=== PATIENT | male | born 1950 | race Caucasian/White ===

== ENCOUNTER 2018-10-13 08:35 | Inpatient (IN) | payer BC, OTHER ==
[~2018-10-13] VITALS: Ht 188 cm; Wt 106.9 kg
[2018-10-13 10:07] LABS: Basophils # (auto) 0.1 uL; Basophils % (auto) 0.7 % (0.0-2.0); Eosinophils # (auto) 0.1 uL; Eosinophils % (auto) 1.1 % (0.0-7.0); Hematocrit 44.7 % (41.0-53.0); Hemoglobin 15.3 g/dL (13.5-17.5); Lymphocytes # (auto) 0.7 uL; Lymphocytes % (auto) 7.4 % (10.0-50.0); Mean Corpuscular Hemoglobin 30.1 pg (28.0-32.0); Mean Corpuscular Hgb Conc. 34.3 g/dL (32.0-36.0); Mean Corpuscular Volume 87.7 fL (80.0-100.0); Monocytes # (auto) 1.3 uL; Monocytes % (auto) 13.5 % (0.0-12.0); Neutrophils # (auto) 7.6 uL; Neutrophils % (auto) 77.3 % (37.0-80.0); Platelet Count (auto) 274 10^3/uL (140-450); Red Cell Distribution Width 13.5 % (11.8-14.3); White Blood Cell 9.8 10^3/uL (4.4-10.8)
[2018-10-13 10:25] LABS: Albumin 3.7 g/dL (3.4-5.0); Amylase 30 U/L (25-115); Anion Gap 8 (5-15); Blood Urea Nitrogen 16 mg/dL (7-18); Calcium 9.2 mg/dL (8.5-10.1); Carbon Dioxide 27 mmol/L (21-32); Chloride 96 mmol/L (98-107); Glucose 121 mg/dL (74-106); Lipase 92 U/L (73-393); Potassium 4.6 mmol/L (3.5-5.1); Sodium 131 mmol/L (136-145)
[2018-10-13 10:31] LABS: Alanine Aminotransferase 24 U/L (16-61); Alkaline Phosphatase 90 U/L (45-117); Aspartate Aminotransferase 14 U/L (15-37); Bilirubin, Total 0.9 mg/dL (0.2-1.0); GFR African American 62 mL/min; GFR Non-African American 51 mL/min; Total Protein 7.5 g/dL (6.4-8.2)
[2018-10-13 14:18] LABS: Urine Bacteria NONE SEEN /hpf (None Seen); Urine Blood Negative /uL (Negative); Urine WBC <1 /hpf (0 - 3)
[2018-10-13] MEDS ORDERED: metroNIDAZOLE 500MG/100ML 100 ML IV ONE (15:00)
[2018-10-13] MEDS ORDERED: GASTROGRAFIN 120 ML SOL ONE (15:01)
[2018-10-13] MEDS ORDERED: PANTOPRAZOLE 40 MG/10 ML VIAL INJ IV ONE (15:15)
[2018-10-13] MEDS ORDERED: cefTRIAXone 1GM/50ML D5W 50 ML IV ONE (15:15)
[2018-10-13] MEDS ORDERED: LACTULOSE 20Gm/30ML SOLN PO PRN (15:15)
[2018-10-13] MEDS ORDERED: PROMETHAZINE HCL 25 MG/ML 1ML IV PRN (15:15)
[2018-10-13] MEDS ORDERED: MORPHINE SULFATE 4 MG/ML SYR/VIAL IV PRN ×2 (15:15)
--- NOTE | 2018-10-13 16:20 | NUR ---
Med-Surg admit from ER JONNY MANN admitted to Med-Surg unit after SBAR received. Patient reported mild abdominal pain. No nausea at this time though he said he has been having nausea and vomiting these past few days. Patient oriented to LANDON Perez RN, unit, room, bed, and unit policies regarding patient care and visiting hours. Patient is on room air, weighed by bed scale and encouraged to call if they need something. All questions and concerns addressed, patient verbalized understanding.
[2018-10-13] MEDS ORDERED: ESOMEPRAZOLE 40 MG/5ml VIAL INJ IV SCH (16:30)
[2018-10-13] MEDS ORDERED: SERT-275 PO (16:50)
[2018-10-13] MEDS ORDERED: BENA5TAB5 PO (16:50)
[2018-10-13] MEDS ORDERED: LEVO50TA7 PO (16:50)
[2018-10-13] MEDS ORDERED: DIGO0.1262 PO (16:50)
[2018-10-13] MEDS: SODIUM CHLORIDE 0.9% 1,000 ML IV SCH (16:59)
[2018-10-13 17:21] VITALS: BP 117/72
--- NOTE | 2018-10-13 19:02 | NUR ---
Page Dr. Yee to report on Small bowel series result.
--- NOTE | 2018-10-13 19:35 | NUR ---
Opening Shift Note Assumed care of patient, awake and alert x4. Patient denies pain or nausea at this time. Instructed on plan of care and to call for assistance. Bed is locked in lowest position, side rails x 2 are up, and call light is within reach.
--- NOTE | 2018-10-13 20:00 | NUR ---
PAGED DR. YEE RE: NGT CLARIFICATION/REPORT ON SMALL BOWEL X-RAY Paged Dr. Yee regarding NGT order clarification and to report the small bowel x-ray results. Awaiting call back.
[2018-10-13] MEDS: metroNIDAZOLE 500MG/100ML 100 ML IV SCH (21:08)
[2018-10-13 21:43] VITALS: BP 110/56
--- NOTE | 2018-10-14 00:08 | NUR ---
PAGED HOSPITALIST RE: CLARIFICATION FOR NGT PLACEMENT ORDER Hospitalist paged regarding clarification for NGT placement order. Awaiting call back.
--- NOTE | 2018-10-14 00:11 | NUR ---
SPOKE WITH ITZEL HILL RE: NGT ORDER Spoke with ITZEL Hill regarding NGT order. Informed ITZEL Hill that patient had a small bowel x-ray done and results showed "there is no evidence for small bowel obstruction." ITZEL Hill was also made aware that patient denies nausea or vomiting at this time and his abdomen is only tender when he moves. Per ITZEL Hill it is okay to discontinue order for NG tube placement as it is not needed at this time.
--- NOTE | 2018-10-14 01:06 | NUR ---
CDIFF STOOL SAMPLE COLLECTED AND SENT TO LAB CDIFF stool sample collected and sent to lab.
[2018-10-14] MEDS: SODIUM CHLORIDE 0.9% 1,000 ML IV SCH ×3 (01:07→21:36)
[2018-10-14 05:11] VITALS: BP 112/67
[2018-10-14] MEDS: metroNIDAZOLE 500MG/100ML 100 ML IV SCH ×3 (05:25→21:36)
--- NOTE | 2018-10-14 07:01 | NUR ---
CLOSING SHIFT NOTE Patient is laying in bed with symmetrical chest rise and fall. Patient denies pain at this time. No S/S of distress noted. Bed is locked in lowest position, side rails x 2 are up, and call light is within reach. Endorsed patient care to Vianey DEJESUS.
[2018-10-14 07:02] LABS: Potassium 3.9 mmol/L (3.5-5.1)
[2018-10-14 07:06] LABS: Albumin 3.1 g/dL (3.4-5.0); BUN/Creatinine Ratio 13.5; Calcium 8.3 mg/dL (8.5-10.1)
[2018-10-14 07:08] LABS: Bilirubin, Total 0.6 mg/dL (0.2-1.0); Total Protein 6.3 g/dL (6.4-8.2)
--- NOTE | 2018-10-14 07:20 | NUR ---
Opening Shift Note Assumed care of patient, awake and alert. No S/S of distress/SOB. Patient reported mild abdominal pain and liquid stool. Instructed on POC-continue IV hydration, IV antibiotics, keep NPO for now but will ask MD to advance diet as tolerated. Patient informed to call for assist PRN, will continue to monitor for changes Q1hr and PRN.
[2018-10-14 08:30] VITALS: BP 111/63
[2018-10-14] MEDS: cefTRIAXone 1GM/50ML D5W 50 ML IV SCH (09:00)
[2018-10-14] MEDS ORDERED: PANTOPRAZOLE 40 MG/10 ML VIAL INJ IV SCH (10:00)
[2018-10-14] MEDS: ESOMEPRAZOLE 40 MG/5ml VIAL INJ IV SCH (10:33)
[2018-10-14 12:30] VITALS: BP 118/73
--- NOTE | 2018-10-14 17:00 | NUR ---
Message from Dr. Leblanc Per Dr. Leblanc, patient will need to follow up with GI out-patient in 2-4 weeks for colonoscopy.
[2018-10-14 17:28] VITALS: BP 126/59
--- NOTE | 2018-10-14 19:00 | NUR ---
Closing Note Patient is resting in bed, no complaints of pain. Family at bedside, call light within reach and bed in lowest position. Care endorsed to night RN.
--- NOTE | 2018-10-14 19:30 | NUR ---
Opening Shift Note Assumed care of patient, awake and alert. No S/S of distress/SOB or pain. Insructed on POC and to callfor assist PRN, will continue to monitor for changes Q1hr and PRN. Fall and safety precautions in place. Call light within reach.
[2018-10-14 22:00] VITALS: BP 145/87
[2018-10-15 05:00] VITALS: BP 141/67
[2018-10-15] MEDS: metroNIDAZOLE 500MG/100ML 100 ML IV SCH (05:41)
[2018-10-15 07:19] VITALS: BP 132/75
[2018-10-15 07:26] LABS: Albumin 3.1 g/dL (3.4-5.0); BUN/Creatinine Ratio 8.9; Calcium 8.2 mg/dL (8.5-10.1); Potassium 3.7 mmol/L (3.5-5.1)
[2018-10-15 07:29] LABS: Bilirubin, Total 0.4 mg/dL (0.2-1.0)
--- NOTE | 2018-10-15 07:44 | NUR ---
Assumed care of pt, awake and alert, no s&s of distress/sob or pain noted, instructed on poc and to call for assist prn, will continue to monitor for changes q1h and prn.
[2018-10-15] MEDS: cefTRIAXone 1GM/50ML D5W 50 ML IV SCH (09:32)
[2018-10-15] MEDS: ESOMEPRAZOLE 40 MG/5ml VIAL INJ IV SCH (09:37)
[2018-10-15] MEDS: SODIUM CHLORIDE 0.9% 1,000 ML IV SCH ×3 (10:36→22:21)
--- NOTE | 2018-10-15 12:14 | NUR ---
Pt awake and alert , no s&s of distress/sob or pain noted, will continue to monitor for changes q1h and prn.
[2018-10-15] MEDS ORDERED: DIGOXIN 0.125 MG TAB PO ONE (12:15)
[2018-10-15] MEDS ORDERED: LEVOTHYROXINE SODIUM 50 MCG TAB PO ONE (12:15)
[2018-10-15] MEDS ORDERED: BENAZEPRIL HCL 10 MG TAB PO ONE (12:30)
[2018-10-15] MEDS ORDERED: SERTRALINE HCL 50 MG TAB PO ONE (12:30)
[2018-10-15] MEDS ORDERED: PANTOPRAZOLE 40 MG TAB PO ONE (12:30)
[2018-10-15 14:09] VITALS: BP 126/67
--- NOTE | 2018-10-15 15:40 | NUR ---
Pt sleeping , no s&s of distress/sob or pain noted, will continue to monitor for changes q1h and prn.
[2018-10-15 17:39] VITALS: BP 123/66
--- NOTE | 2018-10-15 20:00 | NUR ---
Opening shift note: Patient resting in bed. Reports no pain or discomfort since diet was advanced. Bed is locked in lowest position with side rails up x2. He was updated on his plan of care and understands to use call light if assistance is needed. Will continue to monitor.
[2018-10-15 22:00] VITALS: BP 104/58
[2018-10-16 05:00] VITALS: BP 117/63
[2018-10-16] MEDS ORDERED: LEVOTHYROXINE SODIUM 50 MCG TAB PO SCH (07:00)
[2018-10-16 07:16] LABS: Basophils # (auto) 0.1 uL; Basophils % (auto) 0.8 % (0.0-2.0); Eosinophils # (auto) 0.2 uL; Eosinophils % (auto) 3.1 % (0.0-7.0); Hematocrit 40.6 % (41.0-53.0); Hemoglobin 13.7 g/dL (13.5-17.5); Lymphocytes # (auto) 1.6 uL; Lymphocytes % (auto) 23.4 % (10.0-50.0); Mean Corpuscular Hemoglobin 29.8 pg (28.0-32.0); Mean Corpuscular Hgb Conc. 33.7 g/dL (32.0-36.0); Mean Corpuscular Volume 88.3 fL (80.0-100.0); Monocytes # (auto) 0.7 uL; Monocytes % (auto) 10.1 % (0.0-12.0); Neutrophils # (auto) 4.4 uL; Neutrophils % (auto) 62.6 % (37.0-80.0); Platelet Count (auto) 245 10^3/uL (140-450); Red Cell Distribution Width 13.5 % (11.8-14.3)
[2018-10-16 07:38] LABS: BUN/Creatinine Ratio 8.3; Calcium 8.2 mg/dL (8.5-10.1)
[2018-10-16 08:00] VITALS: BP 135/69
[2018-10-16 09:00] VITALS: BP 135/69
[2018-10-16] MEDS ORDERED: BENAZEPRIL HCL 10 MG TAB PO SCH (10:00)
[2018-10-16] MEDS ORDERED: DIGOXIN 0.125 MG TAB PO SCH (10:00)
[2018-10-16] MEDS ORDERED: PANTOPRAZOLE 40 MG TAB PO SCH (10:00)
[2018-10-16] MEDS ORDERED: SERTRALINE HCL 50 MG TAB PO SCH (10:00)
[2018-10-16 12:23] VITALS: BP 135/69
--- NOTE | 2018-10-16 13:00 | NUR ---
PATIENT DISCHARGED HOME. IV ACCESS DISCONTINUED. ALL DISCHARGE PAPERWORK SIGNED AND ALL DISCHARGE INSTRUCTIONS GIVEN
--- NOTE | 2018-10-16 16:10 | NUR ---
IM pt d/c before I could get IM signed
== END 2018-10-16 13:00 | disposition home or self-care (01) | DRG 389 ==
LOC: ER 08:38 → EAST 15:07
PROVIDERS: ADMIT Internal Medicine; ATTEND Internal Medicine
DX: K56.600 Partial intestinal obstruction, unspecified as to cause (principal); I13.0 Hypertensive heart and chronic kidney disease with heart failure and stage 1 through stage 4 chronic kidney disease, or unspecified chronic kidney disease; E03.9 Hypothyroidism, unspecified; F17.210 Nicotine dependence, cigarettes, uncomplicated; F32.9 Major depressive disorder, single episode, unspecified; I25.10 Atherosclerotic heart disease of native coronary artery without angina pectoris; I48.91 Unspecified atrial fibrillation; J44.9 Chronic obstructive pulmonary disease, unspecified; K52.9 Noninfective gastroenteritis and colitis, unspecified; K76.0 Fatty (change of) liver, not elsewhere classified; K80.20 Calculus of gallbladder without cholecystitis without obstruction; N18.9 Chronic kidney disease, unspecified; N26.1 Atrophy of kidney (terminal); Z80.0 Family history of malignant neoplasm of digestive organs
CPT/HCPCS: 36415; 71046; 74176; 74250; 80048; 80053; 81001; 82150; 82705; 83690; 84443; 84484; 85025; 85048; 85652; 87177; 87493; 93005; G0378; J0696; J3490